=== PATIENT | female | born 1960 | race Caucasian/White ===

== ENCOUNTER → 2019-08-12 | Outpatient (CLI) | payer OTHER | LOC: M.MRI 12:48 | DX: S83.281A Other tear of lateral meniscus, current injury, right knee, initial encounter (principal); M25.761 Osteophyte, right knee; M25.461 Effusion, right knee; M71.21 Synovial cyst of popliteal space [Baker], right knee; X58.XXXA Exposure to other specified factors, initial encounter; Y93.89 Activity, other specified; Y92.89 Other specified places as the place of occurrence of the external cause; Y99.8 Other external cause status ==